=== PATIENT | female | born 1995 | race Hispanic/Latino ===

== ENCOUNTER 2017-10-05 10:18 | Emergency (ER) | payer OTHER ==
[2017-10-05 10:31] VITALS: RESP 18
--- NOTE | 2017-10-05 10:44 | ED PDOC ---
Arrival/HPI - General Chief Complaint: Psychiatric Evaluation Time Seen by Provider: 10/05/17 10:43 Historian: Patient - History of Present Illness Narrative History of Present Illness (Text): 10/05/17 10:44 This 22 yo female is brought by S for PES evaluation. Patient stated she has been feeling depressed, with "intrusive thoughts", feeling "some one" has been trying to locate her with the use of IP address from her computer. Patient is here for evaluation. Patient denies sob, cp, fever, abdominal pain, hallucination, suicidal ideation, homicidal ideation, illegal drug use, or abnormal gait. Time/Duration: Other (see hpi) Context: Home Past Medical History - Provider Review Nursing Documentation Reviewed: Yes - Infectious Disease Hx of Infectious Diseases: None - Cardiac Hx Cardiac Disorders: No - Pulmonary Hx Respiratory Disorders: No - Neurological Hx Neurological Disorder: No - HEENT Hx HEENT Disorder: No - Renal Hx Renal Disorder: No - Endocrine/Metabolic Hx Endocrine Disorders: No - Hematological/Oncological Hx Blood Disorders: No - Integumentary Hx Dermatological Disorder: No - Musculoskeletal/Rheumatological Hx Musculoskeletal Disorders: No - Gastrointestinal Hx Gastrointestinal Disorders: No - Genitourinary/Gynecological Hx Genitourinary Disorders: No - Psychiatric Hx Psychophysiologic Disorder: Yes Hx Anxiety: Yes Hx Depression: Yes (Major Depression) Hx Substance Use: No Other/Comment: Intrusive Thoughts Family/Social History - Physician Review Nursing Documentation Reviewed: Yes Family/Social History: Other (noncontributory) Smoking Status: Never Smoked Hx Alcohol Use: No Hx Substance Use: No Allergies/Home Meds Allergies/Adverse Reactions: Allergies No Known Allergies Allergy (Verified 10/05/17 10:35) Home Medications: Home Meds Medication Instructions Recorded Confirmed No Known Home Med 10/05/17 10/05/17 Review of Systems - Review of Systems Constitutional: Normal. absent: Fatigue, Weight Change, Fevers, Night Sweats Eyes: Normal ENT: Normal Respiratory: Normal Cardiovascular: Normal Gastrointestinal: Normal Genitourinary Female: Normal Musculoskeletal: Normal Skin: Normal Neurological: Normal Endocrine: Normal Hemo/Lymphatic: Normal Psychiatric: Depression, Other (see hpi). absent: Suicidal Ideation Physical Exam Vital Signs Temp Pulse Resp BP Pulse Ox 10/05/17 12:57 98.3 F 89 18 131/72 98 10/05/17 12:40 98.3 F 89 18 131/72 98 10/05/17 10:28 98.4 F 100 H 18 133/90 99 Temperature: Afebrile Blood Pressure: Normal Pulse: Regular Respiratory Rate: Normal Appearance: Positive for: Well-Appearing, Non-Toxic, Comfortable Pain Distress: None Mental Status: Positive for: Alert and Oriented X 3 - Systems Exam Head: Present: Atraumatic, Normocephalic Pupils: Present: PERRL Extroacular Muscles: Present: EOMI Conjunctiva: Present: Normal Mouth: Present: Moist Mucous Membranes Neck: Present: Normal Range of Motion Respiratory/Chest: Present: Clear to Auscultation, Good Air Exchange. No: Respiratory Distress, Accessory Muscle Use Cardiovascular: Present: Regular Rate and Rhythm, Normal S1, S2. No: Murmurs Abdomen: No: Tenderness, Distention, Peritoneal Signs Back: Present: Normal Inspection Upper Extremity: Present: Normal Inspection. No: Cyanosis, Edema Lower Extremity: Present: Normal Inspection. No: Edema Neurological: Present: GCS=15, CN II-XII Intact, Speech Normal Skin: Present: Warm, Dry, Normal Color. No: Rashes Psychiatric: Present: Alert, Oriented x 3, Normal Insight, Normal Concentration , Normal Mood. No: Suicidal Ideation, Homicidal Ideation, Delusional, Hallucinations, Intoxicated Medical Decision Making ED Course and Treatment: 10/05/17 12:31 Patient was evaluated by Luba from [facility]. She recommended admission for depression, however, she stated there is not bed today. She said there will be a bed tomorrow. Patient is agreeable to return tomorrow for admission. Patient denies HI, SI Re-evaluation Time: 12:34 Reassessment Condition: Re-examined, Improved - Lab Interpretations Lab Results: 10/05/17 10:35 10/05/17 10:35 Lab Results 10/05/17 10:35: Alcohol, Quantitative < 10 10/05/17 10:35: Salicylates < 1 L, Acetaminophen < 10.0 L 10/05/17 10:35: Urine Opiates Screen Negative, Urine Methadone Screen Negative, Ur Barbiturates Screen Negative, Ur Phencyclidine Scrn Negative, Ur Amphetamines Screen Negative, U Benzodiazepines Scrn Negative, U Oth Cocaine Metabols Negative, U Cannabinoids Screen Negative 10/05/17 10:35: Sodium 143, Potassium 4.0, Chloride 105, Carbon Dioxide 22, Anion Gap 20, BUN 28 H, Creatinine 0.7, Est GFR ( Amer) > 60, Est GFR ( Non-Af Amer) > 60, Random Glucose 132 H, Calcium 9.7, Magnesium 1.8, Total Bilirubin 0.9, AST 25, ALT 24, Alkaline Phosphatase 71, Total Protein 8.3, Albumin 5.0 H, Globulin 3.4, Albumin/Globulin Ratio 1.5 10/05/17 10:35: Urine Color Yellow, Urine Appearance Clear, Urine pH 5.5, Ur Specific [place] >= 1.030, Urine Protein 100 H, Urine Glucose (UA) Negative, Urine Ketones 40 H, Urine Blood Trace-intact H, Urine Nitrate Negative, Urine Bilirubin Small H, Urine Urobilinogen 1.0 H, Ur Leukocyte Esterase Negative, Urine RBC 2 - 5, Urine WBC 1 - 3, Ur Epithelial Cells 6 - 8, Urine Bacteria Many , Coarse Granular Casts Trace H, Urine Other Uyeast, Urine HCG, Qual Negative 10/05/17 10:35: WBC 6.2, RBC 4.46, Hgb 13.5, Hct 38.7, MCV 86.8, MCH 30.3, MCHC 34.9, RDW 12.7, Plt Count 310, MPV 9.9, Gran % 64.9, Lymph % (Auto) 26.6, [place] % (Auto) 7.3 H, Eos % (Auto) 0.6 L, Baso % (Auto) 0.6, Gran # 3.99, Lymph # ( Auto) 1.6, [place] # (Auto) 0.5, Eos # (Auto) 0.0, Baso # (Auto) 0.04 - RAD Interpretation Radiology Orders: 10/05/17 10:43 CHEST PORTABLE [RAD] Stat Disposition/Present on Arrival - Present on Arrival Any Indicators Present on Arrival: No History of DVT/PE: No History of Uncontrolled Diabetes: No Urinary Catheter: No History of Decub. Ulcer: No History Surgical Site Infection Following: None - Disposition Have Diagnosis and Disposition been Completed?: Yes Diagnosis: Depression Disposition: HOME/ ROUTINE Disposition Time: 12:35 Condition: GOOD Discharge Instructions (ExitCare): Depression, Adult (DC) Additional Instructions: Call private doctor for follow up visit in 1-2 days. Take medication as instructed. Return to emergency if symptoms. Referrals: [facility] [Outside] - Follow up with primary [facility] [Outside] - Follow up with primary Forms: [employer] ([place])
[2017-10-05 11:04] LABS: BASO # 0.04 K/mm3 (0.0-2.0); BASO % 0.6 % (0.0-3.0); EOS % 0.6 % (1.5-5.0); GRAN # 3.99 (1.4-6.5); GRAN % 64.9 % (50.0-68.0); HEMOGLOBIN 13.5 g/dL (12.0-16.0); LYMPH # 1.6 (1.2-3.4); LYMPH % 26.6 % (22.0-35.0); MEAN CELL VOLUME 86.8 fl (80.0-105.0); MEAN CORPUSCULAR HEMOGLOBIN 30.3 pg (25.0-35.0); MEAN CORPUSCULAR HGB CONC 34.9 g/dl (31.0-37.0); MEAN PLATELET VOLUME 9.9 fl (7.0-11.0); MONO # 0.5 (0.1-0.6); MONO % 7.3 % (1.0-6.0); RBC 4.46 10^6/uL (3.5-6.1); RED CELL DISTRIBUTION WIDTH 12.7 % (11.5-14.5); WHITE BLOOD COUNT 6.2 10^3/ul (4.5-11.0)
[2017-10-05 11:05] LABS: PH,URINE 5.5 (4.7-8.0); URINE BILIRUBIN SMALL (NEGATIVE); URINE BLOOD TRACE-INTACT (NEGATIVE); URINE GLUCOSE (UA) NEGATIVE (NEGATIVE); URINE LEUKOCYTE ESTERASE NEGATIVE Leu/uL (NEGATIVE); URINE PROTEIN 100 mg/dL (<30 mg/dL)
[2017-10-05 11:07] LABS: URINE APPEARANCE CLEAR (CLEAR); URINE COLOR YELLOW (YELLOW)
[2017-10-05 11:08] LABS: HCG,QUALITATIVE URINE NEGATIVE (NEGATIVE)
[2017-10-05 11:12] LABS: ALB/GLOB RATIO 1.5 (1.1-1.8); ALT/SGPT 24 U/L (7-56); AST/SGOT 25 U/L (14-36); BLOOD UREA NITROGEN 28 mg/dL (7-21); CALCIUM 9.7 mg/dL (8.4-10.5); GFR AFRICAN-AMERICAN > 60; GFR NON-AFRICAN AMERICAN > 60
[2017-10-05 11:13] LABS: ACETAMINOPHEN < 10.0 ug/ml (10.0-20.0); SALICYLATE < 1 mg/dL (2.0-20.0)
[2017-10-05 11:21] LABS: URINE BACTERIA MANY (NEG)
[2017-10-05 11:22] LABS: URINE COARSE GRANULAR CAST TRACE /hpf (0-2)
[2017-10-05 11:27] LABS: BARBITURATES, UR NEGATIVE (NEGATIVE); BENZODIAZEPINES, UR NEGATIVE (NEGATIVE); OPIATES, UR NEGATIVE (NEGATIVE); PHENCYCLIDINE, UR NEGATIVE (NEGATIVE)
--- NOTE | 2017-10-05 12:11 | CARD ---
APPROVED REPORT EKG Measurement Heart [id number] <Conclusion> Normal sinus rhythm Normal ECG
--- NOTE | 2017-10-05 12:13 | RAD ---
HISTORY: PES eval COMPARISON: No prior. FINDINGS: LUNGS: No active pulmonary disease. PLEURA: No significant pleural effusion identified, no pneumothorax apparent. CARDIOVASCULAR: Normal. OSSEOUS STRUCTURES: No significant abnormalities. VISUALIZED UPPER ABDOMEN: Normal. OTHER FINDINGS: None. IMPRESSION: No active disease.
[2017-10-05 12:57] VITALS: BP 131/72; PULSE 89; TEMP 98.3; O2SAT 98
== END 2017-10-05 12:40 | disposition home or self-care (01) ==
LOC: ED 10:18
DX: F32.9 Major depressive disorder, single episode, unspecified (principal)

== ENCOUNTER 2017-10-06 11:28 | Inpatient (IN) | payer OTHER ==
--- NOTE | 2017-10-06 11:56 | ED PDOC ---
Arrival/HPI - General Historian: Patient - History of Present Illness Time/Duration: Other (see hpi) Context: Home <Jonh Sandoval - Last Filed: 10/06/17 21:18> <Presley Thomas - Last Filed: 10/07/17 00:46> - General Chief Complaint: Psychiatric Evaluation Time Seen by Provider: 10/06/17 11:50 - History of Present Illness Narrative History of Present Illness (Text): 10/06/17 11:52 This 22 yo female presents to this ED for PES evaluation. Patient stated she has been feeling depressed, and she is feeling that "someone" has been trying to locate her with the use of IP address from her computer. Patient was seen yesterday by PES and she was recommended to return to ED today, since there was not available beds at the Psych floor yesterday. Patient denies sob, cp, fever, abdominal pain, hallucination, suicidal ideation, homicidal ideation, illegal drug use, or abnormal gait. (Jonh Sandoval) Past Medical History - Provider Review Nursing Documentation Reviewed: Yes - Infectious Disease Hx of Infectious Diseases: None - Reproductive Menopause: No - Cardiac Hx Cardiac Disorders: No - Pulmonary Hx Respiratory Disorders: No - Neurological Hx Neurological Disorder: No - HEENT Hx HEENT Disorder: No - Renal Hx Renal Disorder: No - Endocrine/Metabolic Hx Endocrine Disorders: No - Hematological/Oncological Hx Blood Disorders: No - Integumentary Hx Dermatological Disorder: No - Musculoskeletal/Rheumatological Hx Musculoskeletal Disorders: No - Gastrointestinal Hx Gastrointestinal Disorders: No - Genitourinary/Gynecological Hx Genitourinary Disorders: No - Psychiatric Hx Psychophysiologic Disorder: Yes Hx Anxiety: Yes Hx Depression: Yes (Major Depression) Hx Substance Use: No Other/Comment: Intrusive Thoughts - Anesthesia Hx Anesthesia: No <Jonh Sandoval P - Last Filed: 10/06/17 21:18> Family/Social History - Physician Review Nursing Documentation Reviewed: Yes Family/Social History: Other (noncontributory) Smoking Status: Never Smoked Hx Alcohol Use: No Hx Substance Use: No <Jonh Sandoval P - Last Filed: 10/06/17 21:18> Allergies/Home Meds <Jonh Sandoval - Last Filed: 10/06/17 21:18> <Presley Thomas - Last Filed: 10/07/17 00:46> Allergies/Adverse Reactions: Allergies No Known Allergies Allergy (Verified 10/05/17 10:35) Home Medications: Home Meds Medication Instructions Recorded Confirmed No Known Home Med 10/05/17 10/05/17 Review of Systems - Review of Systems Constitutional: Normal. absent: Fatigue, Weight Change, Fevers, Night Sweats Eyes: Normal ENT: Normal Respiratory: Normal Cardiovascular: Normal Gastrointestinal: Normal Genitourinary Female: Normal Musculoskeletal: Normal Skin: Normal Neurological: Normal Endocrine: Normal Hemo/Lymphatic: Normal Psychiatric: Anxiety, Other ((+) paranoia). absent: Suicidal Ideation <Jonh Sandoval P - Last Filed: 10/06/17 21:18> Physical Exam Temperature: Afebrile Blood Pressure: Normal Pulse: Regular Respiratory Rate: Normal Appearance: Positive for: Well-Appearing, Non-Toxic, Comfortable Pain Distress: None Mental Status: Positive for: Alert and Oriented X 3 - Systems Exam Head: Present: Atraumatic, Normocephalic Pupils: Present: PERRL Extroacular Muscles: Present: EOMI Conjunctiva: Present: Normal Mouth: Present: Moist Mucous Membranes Neck: Present: Normal Range of Motion Respiratory/Chest: Present: Clear to Auscultation, Good Air Exchange. No: Respiratory Distress, Accessory Muscle Use Cardiovascular: Present: Regular Rate and Rhythm, Normal S1, S2. No: Murmurs Abdomen: No: Tenderness, Distention, Peritoneal Signs Back: Present: Normal Inspection Upper Extremity: Present: Normal Inspection. No: Cyanosis, Edema Lower Extremity: Present: Normal Inspection. No: Edema Neurological: Present: GCS=15, CN II-XII Intact, Speech Normal, Motor Func Grossly Intact, Normal Sensory Function, Normal Cerebellar Funct, Gait Normal, Memory Normal Skin: Present: Warm, Dry, Normal Color. No: Rashes Psychiatric: Present: Alert, Oriented x 3, Delusional. No: Suicidal Ideation, Homicidal Ideation <Jonh Sandoval P - Last Filed: 10/06/17 21:18> Vital Signs Temp Pulse Resp BP Pulse Ox 10/06/17 21:15 82 18 99 10/06/17 18:17 74 18 134/74 100 10/06/17 12:40 98.2 F 85 18 110/57 L 100 10/06/17 11:46 99.2 F 98 H 18 126/82 100 Medical Decision Making Re-evaluation Time: 11:57 Reassessment Condition: Re-examined, Improving,but remains with symptoms - Lab Interpretations I have reviewed the lab results: Yes Interpretation: No clinic. lab abnormalty <Jonh Sandoval - Last Filed: 10/06/17 21:18> <Presley Thomas - Last Filed: 10/07/17 00:46> ED Course and Treatment: 10/06/17 11:57 Patient is medically clear for psychiatric admission 10/06/17 21:20 Patient signed out to Dr. Thomas at this time. Pending availability of bed for psych admission (Jonh Sandoval) - RAD Interpretation Narrative RAD Interpretations (Text): 10/06/17 11:58 CXR: NAD (10/05/17) (Jonh Sandoval) - PA / NIGHT COURT MAGISTRATE / Resident Statement MD/DO has reviewed & agrees with the documentation as recorded. <Presley Thomas - Last Filed: 10/07/17 00:46> Disposition/Present on Arrival - Present on Arrival Any Indicators Present on Arrival: No History of DVT/PE: No History of Uncontrolled Diabetes: No Urinary Catheter: No History of Decub. Ulcer: No History Surgical Site Infection Following: None - Disposition Have Diagnosis and Disposition been Completed?: Yes <Jonh Sandoval - Last Filed: 10/06/17 21:18> - Present on Arrival Any Indicators Present on Arrival: No - Disposition Have Diagnosis and Disposition been Completed?: Yes Disposition Time: 00:15 <Presley Thomas - Last Filed: 10/07/17 00:46> - Disposition Diagnosis: Paranoid ideation Disposition: HOSPITALIZED Condition: GOOD
[2017-10-07 00:45] VITALS: O2SAT 99
[2017-10-07] MEDS ORDERED: Magnesium Hydroxide Susp 30 ml UD PO PRN (01:42)
[2017-10-07] MEDS ORDERED: Alum-Mag Hydrox-Simethicone Susp (30 mL) PO PRN (01:42)
--- NOTE | 2017-10-07 03:24 | PCM.BM ---
<Tiarra Browning - Last Filed: 10/07/17 03:22> Treatment Plan Problems - Problems identified on initial assessmt Delusions Date Initiated: 10/07/17 Time Initiated: 00:45 Assessment reference: NA Status: Active Priority: 1 Anxiety Date Initiated: 10/07/17 Time Initiated: 00:45 Assessment reference: NA Status: Active Priority: 2 Altered Sleep Patterns Date Initiated: 10/07/17 Time Initiated: 00:45 Assessment reference: NA Status: Active Priority: 3 Treatment assets and liabiliti Patient Assests: cooperative, self-reliant, ADL independent, good support system , negotiates basic needs Patient Liabilities: financial problems - Milieu Protocol Maintain good personal hygiene: daily Encourage regular showers, daily Remind patient to perform daily oral care, daily Assist patient to perform ADL's Conduct patient checks and document Observation sheet: Q15 minutes Maintain personal safety: every shift Educate patient to report safety concerns to staff, every shift Monitor environment for contraband/sharps Medication safety: Monitor for expected outcome, potential side effects: every shift, Assess barriers to learning: every shift, Assess readiness for medication education: every shift Discharge/Continuing Care - Education Needs Education Needs: Family Medication, Family Diagnosis/Disease Process, Family Coping Skills, Patient Medication, Patient Diagnosis/Disease Process, Patient Coping Skills - Discharge Discharge Criteria: Tolerates medication w/o severe side effects, Free of paranoid thoughts, Normal sleep pattern <Chiara Montero - Last Filed: 10/07/17 09:07> - Diagnosis (1) Psychosis Status: Acute Interventions: 10/07/17 09:07 Psychoeducation/psychotherapy Psychopharmacology/adjustment of medications as needed/ monitoring possible side effects Evaluate pt on daily basis Compliance with medications and follow up appointments Long acting medication if pt is noncompliant with pill form Suicide and homicide risk assessment and prevention, coping strategies, safety plan Relapse prevention Reduction of symptoms Improve functional status Possible assertive community treatment Cognitive behavioral therapy Family involvement Possible social skill training as outpatient <Denise Garrison Y - Last Filed: 10/08/17 17:30> Family Contact Family involvement: Family/SO is involved Family contact: Patient agrees to contact Family contact name: Fior Lynne(mother) Family contacted how many times per week?: 2
[2017-10-07 07:03] LABS: GLUCOSE,FASTING 78 mg/dL (65-110); HDL CHOLESTEROL 58 mg/dL (29-60)
[2017-10-07 07:14] LABS: LDL CHOLESTEROL 63 mg/dL (0-129)
--- NOTE | 2017-10-07 14:22 | PCM.PSYCH ---
Initial Psychiatric Evaluation - Initial Psychiatric Evaluation Type of Admission: Voluntary Legal Status: Capacity (patient has capacity to sign consent for tx) Chief Complaint (in patient's own words): "I created an account at [employer], one person liked this page, I think it was stupid idea to create an account, people liked my page, then I was feeling violated, I should keep my privacy, It may be nothing just my name, however I no longer have an access to to it, so it needs to be permanently deleted, I came here because my mom shut the internet down, please log yourself to the account, and ask them to delete my account, so they cant try to make another account, we will know who they are". pt was keep going and going with thought process disorganized, tangential and circumstantial. Patient's Reaction to Hospitalization: pt was admitted to the psych unit for evaluation of paranoia, pt was not able to function, pt was feeling her privacy was violated. History of Present Illness and Precipitating Events: shortly pt is 22yo female, self reported h/o depression, denied h/o psych admissions, denied h/o psych hospitalizations, pt came to the hospital on , but no beds were available, pt did not want to go to other hospital, pt was not suicidal or homicidal but psychotic, pt came back 10/06/17, was admitted for evaluation of paranoia, inability to function, anxiety, depression, obsessive thoughts, pt requires further evaluation and stabilization, observation, med management. pt was seen at the treatment team meeting, presented to be psychotic, peculiar, long/dark/greasy hair covering half of pt's attractive face, white/pail skin, purple lipstick, long black dress, intense eye contact, pt is anxious, depressed , acceptable hygiene, good ADLs. pt said that she started to feel weird in April of this year, pt was telling that somebody is using her account using pseudonym which she created on [employer], pt said that she tried to shut the account down but system did not allow her to do so, pt reported that someone stolen her identity and pt was "violated of my privacy", pt reported that she is "Not overly obsessed", but pt' s mother needed to shut the internet because she was constantly on the internet. pt also reported that "I pinned so many pages and now it is spread all over the internet". pt reported that she was on "emotional roller coaster", pt reported that she had obsessive thoughts, "they are just popping in my head" , pt said she was binge eating, denied purging. pt also was making weird request for this rewriter to log her to the website and ask to delete her account , when was asked what help pt looking for, pt said "all I need it is technical help with the website, but my mom said that I am paranoid", pt gave permission to talk to mother. pt denied hearing voices or seeing things, but pt presented to be psychotic. pt reported to feel depressed, hopeless, but denied thoughts of harming self or others. pt has h/o irritability, mind racing, impulsivity, but no full manic episodes in the past. pt reported that she had difficulties to fall and to stay asleep. pt denied using drugs or smoking cigarettes, denied alcohol consumption. medical h/o: peptic ulcer disease, h/o obesity Family h/o: father has schizophrenia, he is 30 yo now, pt does not know what meds he is on. Lab Results 10/07/17 06:30: TSH 3rd Generation 1.31 10/07/17 06:30: Fasting Glucose 78, Triglycerides 50, Cholesterol 147, LDL Cholesterol Direct 63, HDL Cholesterol 58 Vital Signs Temp Pulse Resp BP Pulse Ox 10/07/17 07:22 98.4 F 85 18 105/68 10/07/17 01:00 97.4 F L 72 106/75 99 10/07/17 00:45 99 10/06/17 21:15 82 18 99 10/06/17 18:17 74 18 134/74 100 10/06/17 12:40 98.2 F 85 18 110/57 L 100 10/06/17 11:46 99.2 F 98 H 18 126/82 100 Current Medications: Active Medications Generic Name Dose Route Start Last Admin Trade Name Freq PRN Reason Stop Dose Admin Acetaminophen 650 mg 10/07/17 01:42 Tylenol 325mg Tab PO Q4 PRN Pain, moderate (4-7) Al Hydrox/Mg Hydrox/Simethicone 30 ml 10/07/17 01:42 Maalox Plus 30 Ml PO DAILY PRN Upset Stomach Aripiprazole 2.5 mg 10/07/17 22:00 Abilify PO AMHS NIKKI Fluoxetine HCl 10 mg 10/07/17 11:45 10/07/17 12:00 Prozac PO 10 mg DAILY NIKKI Administration Lorazepam 0.5 mg 10/07/17 01:45 10/07/17 02:00 Ativan PO 0.5 mg HS NIKKI Administration Protocol Lorazepam 0.25 mg 10/07/17 11:36 Ativan PO TID PRN Anxiety Protocol Magnesium Hydroxide 30 ml 10/07/17 01:42 Milk Of Magnesia PO DAILY PRN Constipation Zaleplon 5 mg 10/07/17 01:42 Sonata PO HS PRN Insomnia pt was educated about risk/benefits and alternatives of meds Past Psychiatric History - Past Psychiatric History Previous Treatment History: None Prior Professional Help: h/o depression Prior Psychiatric Treatment: none At what hospital: none Duration: none Nature of Treatment: none Explanation of prior treatment: none History of Abuse: none History of ETOH/Drug Use: none History of Family Illness: none Pertinent Medical Hx (Current Medical&Sleep Prob, Allergies): Allergies Allergy/AdvReac Type Severity Reaction Status Date / Time No Known Allergies Allergy Verified 10/07/17 01:55 No Known Home Med 10/05/17 Review of Systems - Review of Systems Systems not reviewed;Unavailable: Acuity of Condition - EENT Eyes: As Per HPI Ears: As Per HPI Nose/Mouth/Throat: As Per HPI - Breasts Breasts: As Per HPI - Cardiovascular Cardiovascular: As Per HPI - Respiratory Respiratory: As Per HPI - Gastrointestinal Gastrointestinal: As Per HPI - Genitourinary Genitourinary: As Per HPI - Reproductive: Female Reproductive:Female: As Per HPI - Menstruation Menstruation: As Per HPI - Musculoskeletal Musculoskeletal: As Par HPI - Integumentary Integumentary: As Per HPI - Neurological Neurological: As Per HPI - Psychiatric Psychiatric: As Per HPI - Endocrine Endocrine: As Per HPI - Hematologic/Lymphatic Hematologic: As Per HPI Mental Status Examination - Personal Presentation Personal Presentation: Looks stated age - Affect Affect: Flat - Motor Activity Motor Activity: Psychomotor Retardation - Reliability in Providing Information Reliability in Providing Information: Poor, due to alteration in thoughts - Speech Speech: Disorganized, Tangential - Mood Mood: Depressed, Anxious - Formal Thought Process Formal Thought Process: Delusions, Paranoia, Loosening of associations, Circumstantial - Hallucinations/Delusions Delusions: Persecution - Obsessions/Compulsions Obsessions: Yes Compulsions: Yes Description of Obsession/Compulsion: obsessed with being cyberbullied - Cognitive Functions Orientation: Person, Place Sensorium: Alert Attention/Concentration: Easily distracted Estimate of Intelligence: Average Judgement: Intact, as evidence by: Insight regarding need for hospitalization - Risk Risk: Diminished functioning - Strength & Assets Inventory Strength & Assets Inventory: Family support, Cooperative - Limitations Limitations: Other (pt is psychotic, strong family h/o schizophrenia) DSM 5 DX - DSM 5 DSM 5 Diagnosis: r/o first break of schizophrenia r/o OCD severe - Recommended/Plan of Treatment Treatment Recommendations and Plan of Treatment: Milieu/structure/supportive therapy Medical consult appreciated, see medical team note for more detailed info SW consultation for discharge plan and social issues Med management abilify 2.5mg po amhh for psychosis prozac 10mg po daily for depression and anxiety and possible OCD ativan prn for anxiety remeron for insomnia Family involvement Follow up on labs Will monitor closely Pt was educated about risk/benefits and alternatives of medications, coping strategies (safety plan, suicide prevention), relapse prevention, importance of follow up with psychiatrist and therapist, stay away from drugs/alcohol/smoking Projected ELOS: 7days Prognosis: guarded Discharge Plan and Discharge Criteria: Pt will be not depressed or manic, will be more hopeful, will be not psychotic or anxious, will be not having thoughts of harming self or others, will be tolerating medications well, will not have major side effects, will be able to function, will not pose threat to self or others. - Smoking Cessation Smoking Cessation Initiated: No Reason for not providing: denied smoking
--- NOTE | 2017-10-08 14:44 | PCM.PYCHPN ---
Psychiatric Progress Note - Psychiatric Progress Note Patient seen today, length of contact: 30min Patient Chief Complaint: "I don't want my mom to be involved, you can talk to her over the phone, but I do want her to come, I'm very angry at her, it does not mean that I will hurt her or something, but I don't want to talk to her" Problems Identified/Issues Discussed: Lab Results 10/07/17 06:30: RPR Nonreactive 10/07/17 06:30: TSH 3rd Generation 1.31 10/07/17 06:30: Fasting Glucose 78, Triglycerides 50, Cholesterol 147, LDL Cholesterol Direct 63, HDL Cholesterol 58 Vital Signs Temp Pulse Resp BP Pulse Ox 10/08/17 07:25 98.0 F 86 19 112/67 10/07/17 16:00 78 115/70 10/07/17 07:22 98.4 F 85 18 105/68 10/07/17 01:00 97.4 F L 72 106/75 99 10/07/17 00:45 99 10/06/17 21:15 82 18 99 10/06/17 18:17 74 18 134/74 100 10/06/17 12:40 98.2 F 85 18 110/57 L 100 10/06/17 11:46 99.2 F 98 H 18 126/82 100 Suicide/ homicide prevention, past psychiatric h/o, current psychiatric symptoms , medical problems, risk/benefits and alternatives of medications, medications compliance, coping strategies, substance abuse h/o, relapse prevention, importance of follow up with psychiatrist and therapist, discharge plan. Medical Problems: none DSM 5 Symptoms Update: shortly pt is 22yo female, self reported h/o depression, denied h/o psych admissions, denied h/o psych hospitalizations, pt came to the hospital on , but no beds were available, pt did not want to go to other hospital, pt was not suicidal or homicidal but psychotic, pt came back 10/06/17, was admitted for evaluation of paranoia, inability to function, anxiety, depression, obsessive thoughts, pt requires further evaluation and stabilization, observation, med management. pt was seen at the treatment team meeting, presented to be psychotic, peculiar, long/dark/greasy hair covering half of pt's attractive face, white/pail skin, purple lipstick, long black dress, intense eye contact, pt is anxious, depressed , acceptable hygiene, good ADLs. pt is paranoid towards her mother, refused to participate in family meeting which this fiction writer requested, pt presented to be seclusive, guarded, paranoid, pt said that she wants to be discharged, pt was educated about 48hr notice, as well as about [facility] screening process ""I do want to be committed, I will stay here". collaterals from mother by SW, pt was more paranoid 4days prior to this visit, pt has impression that she was cyberbullied, was not able to function. pt denied hearing voices or seeing things, but pt presented to be psychotic. pt reported to feel depressed, hopeless, but denied thoughts of harming self or others. as per staff patient is not participating in unit activities, not socializing with other patients, guarded and psychotic. Impression: Rule out for his break of schizophrenia Schizophrenia form disorder Rule out schizoid personality disorder rule out obsessive-compulsive disorder Medication Change: Yes (abilify and prozac increased) Medical Record Reviewed: Yes Consults ordered or reviewed: pt was seen by medical team in ED, pt does not have major medical issues. Mental Status Examination - Cognitive Function Orientation: Person, Place Memory: Impaired Attention: Poor Concentration: Poor Association: Loose Fund of Knowledge: Poor - Mood Mood: Depressed, Anxious - Affect Affect: Flat - Formal Thought Process Formal Thought Process: Delusions, Paranoia, Loosening of associations, Circumstantial - Suicidal Ideation Suicidal Ideation: No - Homicidal Ideation Homicidal Ideation: No Goal/Treatment Plan - Goal/Treatment Plan Need for Continued Stay: Remain at risks for inpatient hospitalization, Severe depression anxiety, Discharge may exacerbated symptoms, Severe functional impairment Progress Toward Problem(s) and Goals/Treatment Plan: Milieu/structure/supportive therapy Medical consult appreciated, see medical team note for more detailed info DIAZ consultation for discharge plan and social issues Med management abilify 5mg po amhh for psychosis prozac 20mg po daily for depression and anxiety and possible OCD ativan prn for anxiety remeron for insomnia Family involvement Follow up on labs Will monitor closely Pt was educated about risk/benefits and alternatives of medications, coping strategies (safety plan, suicide prevention), relapse prevention, importance of follow up with psychiatrist and therapist, stay away from drugs/alcohol/smoking Estimated Date of D/C: 10/15/17
[2017-10-08 16:47] VITALS: RESP 20
--- NOTE | 2017-10-09 10:35 | PCM.PYCHPN ---
Psychiatric Progress Note - Psychiatric Progress Note Patient seen today, length of contact: 25 min Problems Identified/Issues Discussed: Patient is 22 yo female, self reported h/o depression, denied h/o psych admissions, denied h/o psych hospitalizations who was admitted for evaluation of paranoia, inability to function, anxiety, depression and obsessive thoughts I reviewed recent notes and met with patient at bedside. She is calm, superficially cooperative and oriented x3. Grooming is fair. Patient reports feeling improved and denies any hallucinations or paranoia. Affect is a little guarded and anxious. Patient is tolerating her medications except for some continued nausea which may be due to prozac or abilify. Staff notes indicate that patient has been oddly related and a little aloof. Overall she has been in good control without any major behavioral issues. Diagnostic Results: Rule out first break of schizophrenia Schizophrenia form disorder Rule out schizoid personality disorder rule out obsessive-compulsive disorder Medication Change: No ( ) Medical Record Reviewed: Yes Mental Status Examination - Cognitive Function Orientation: Person, Place Memory: Impaired Attention: Poor Concentration: Poor Association: Loose Fund of Knowledge: Poor - Mood Mood: Depressed, Anxious - Affect Affect: Flat - Formal Thought Process Formal Thought Process: Delusions, Paranoia, Loosening of associations, Circumstantial - Suicidal Ideation Suicidal Ideation: No - Homicidal Ideation Homicidal Ideation: No Goal/Treatment Plan - Goal/Treatment Plan Need for Continued Stay: Remain at risks for inpatient hospitalization, Severe depression anxiety, Discharge may exacerbated symptoms, Severe functional impairment Progress Toward Problem(s) and Goals/Treatment Plan: * c/w current tx and plan * c/w prozac, abilify and remeron * No new weekend labs thus far * Vitals reviewed and noted below: Selected Entries 10/08/17 10/08/17 07:25 16:45 Temperature 98.0 F Pulse Rate 86 75 Respiratory 19 20 Rate Blood Pressure 112/67 108/68 Estimated Date of D/C: 10/15/17
--- NOTE | 2017-10-10 10:09 | PCM.PYCHPN ---
Psychiatric Progress Note - Psychiatric Progress Note Patient seen today, length of contact: 25 min Problems Identified/Issues Discussed: Patient is 22 yo female, self reported h/o depression, denied h/o psych admissions, denied h/o psych hospitalizations who was admitted for evaluation of paranoia, inability to function, anxiety, depression and obsessive thoughts I reviewed recent notes and met with patient at bedside. She is calm, superficially cooperative and oriented x3. Grooming is fair. Patient reports feeling improved and denies any hallucinations or paranoia. Affect is a little guarded and anxious. Patient is tolerating her medications. Complained of nausea yesterday and received zofran. She denies any side effects today. Staff notes indicate that patient has been visible on the unit but demonstrates minimal interaction with other patients. She appears a little oddly related and aloof. Overall she has been in good control without any major behavioral issues. Diagnostic Results: Rule out first break of schizophrenia Schizophrenia form disorder Rule out schizoid personality disorder rule out obsessive-compulsive disorder Medication Change: No ( ) Medical Record Reviewed: Yes Mental Status Examination - Cognitive Function Orientation: Person, Place Memory: Impaired Attention: Poor Concentration: Poor Association: Loose Fund of Knowledge: Poor - Mood Mood: Depressed, Anxious - Affect Affect: Flat - Formal Thought Process Formal Thought Process: Delusions, Paranoia, Loosening of associations, Circumstantial - Suicidal Ideation Suicidal Ideation: No - Homicidal Ideation Homicidal Ideation: No Goal/Treatment Plan - Goal/Treatment Plan Need for Continued Stay: Remain at risks for inpatient hospitalization, Severe depression anxiety, Discharge may exacerbated symptoms, Severe functional impairment Progress Toward Problem(s) and Goals/Treatment Plan: * c/w current tx and plan * c/w prozac, abilify and remeron * No new weekend labs * Vitals reviewed and noted below: Selected Entries 10/09/17 10/09/17 07:28 16:00 Temperature 97.7 F Pulse Rate 82 75 Respiratory 20 Rate Blood Pressure 110/52 L 104/66 Estimated Date of D/C: 10/15/17
--- NOTE | 2017-10-11 14:32 | PCM.PYCHPN ---
Psychiatric Progress Note - Psychiatric Progress Note Patient seen today, length of contact: 30min Patient Chief Complaint: "I am okay for the family meeting, but I want my mother and my grandmother to be involved only, I don't want my uncle to come" Problems Identified/Issues Discussed: Lab Results 10/07/17 06:30: RPR Nonreactive 10/07/17 06:30: TSH 3rd Generation 1.31 10/07/17 06:30: Fasting Glucose 78, Triglycerides 50, Cholesterol 147, LDL Cholesterol Direct 63, HDL Cholesterol 58 Vital Signs Temp Pulse Resp BP Pulse Ox 10/08/17 07:25 98.0 F 86 19 112/67 10/07/17 16:00 78 115/70 10/07/17 07:22 98.4 F 85 18 105/68 10/07/17 01:00 97.4 F L 72 106/75 99 10/07/17 00:45 99 10/06/17 21:15 82 18 99 10/06/17 18:17 74 18 134/74 100 10/06/17 12:40 98.2 F 85 18 110/57 L 100 10/06/17 11:46 99.2 F 98 H 18 126/82 100 Suicide/ homicide prevention, past psychiatric h/o, current psychiatric symptoms , medical problems, risk/benefits and alternatives of medications, medications compliance, coping strategies, substance abuse h/o, relapse prevention, importance of follow up with psychiatrist and therapist, discharge plan. Medical Problems: none Diagnostic Results: Lab Results 10/07/17 06:30: RPR Nonreactive 10/07/17 06:30: TSH 3rd Generation 1.31 10/07/17 06:30: Fasting Glucose 78, Triglycerides 50, Cholesterol 147, LDL Cholesterol Direct 63, HDL Cholesterol 58 Vital Signs Temp Pulse Resp BP Pulse Ox 10/10/17 15:00 82 100/57 L 10/10/17 07:17 97.6 F 63 20 98/59 L 10/09/17 16:00 75 104/66 10/09/17 07:28 97.7 F 82 20 110/52 L 10/08/17 16:45 75 20 108/68 10/08/17 07:25 98.0 F 86 19 112/67 10/07/17 16:00 78 115/70 06/21/18 07:22 98.4 F 85 18 105/68 10/07/17 01:00 97.4 F L 72 106/75 99 10/07/17 00:45 99 10/06/17 21:15 82 18 99 10/06/17 18:17 74 18 134/74 100 10/06/17 12:40 98.2 F 85 18 110/57 L 100 10/06/17 11:46 99.2 F 98 H 18 126/82 100 DSM 5 Symptoms Update: shortly pt is 22yo female, self reported h/o depression, denied h/o psych admissions, denied h/o psych hospitalizations, pt came to the hospital on , but no beds were available, pt did not want to go to other hospital, pt was not suicidal or homicidal but psychotic, pt came back 10/06/17, was admitted for evaluation of paranoia, inability to function, anxiety, depression, obsessive thoughts, pt requires further evaluation and stabilization, observation, med management. pt was seen at the treatment team meeting room today, presented to be less anxious more relaxed, at the same time oddly related and aloof. presented to be less psychotic, but still peculiar, long/dark/greasy hair covering half of pt's attractive face, white/pail skin, purple lipstick, long black dress. pt is still irritable about her mother shut the internet, at the same time pt said "it is not the end of the world". pt denied hearing voices or seeing things, but guarded. pt denied thoughts of harming self or others, tolerated meds well, no side effects, but as per staff pt felt nauseated yesterday, received zofran. AIMS 0, no EPS. Impression: Rule out for his break of schizophrenia Schizophrenia form disorder Rule out schizoid personality disorder rule out obsessive-compulsive disorder Medication Change: No ( ) Medical Record Reviewed: Yes Consults ordered or reviewed: pt was seen by medical team in ED, pt does not have major medical issues. Mental Status Examination - Cognitive Function Orientation: Person, Place Memory: Impaired Attention: Poor (some improvement) Concentration: Poor (some improvement) Association: Loose (some improvement) Fund of Knowledge: Poor - Mood Mood: Depressed ("I am not depressed"), Anxious - Affect Affect: Constricted (but reactive, mood congruent) - Formal Thought Process Formal Thought Process: Delusions (improving ), Paranoia (improving), Loosening of associations - Suicidal Ideation Suicidal Ideation: No - Homicidal Ideation Homicidal Ideation: No Goal/Treatment Plan - Goal/Treatment Plan Need for Continued Stay: Remain at risks for inpatient hospitalization, Severe depression anxiety, Discharge may exacerbated symptoms, Severe functional impairment Progress Toward Problem(s) and Goals/Treatment Plan: Milieu/structure/supportive therapy Medical consult appreciated, see medical team note for more detailed info SW consultation for discharge plan and social issues Med management abilify 5mg po amhh for psychosis prozac 20mg po daily for depression and anxiety and possible OCD ativan prn for anxiety remeron for insomnia Family involvement Follow up on labs Will monitor closely Pt was educated about risk/benefits and alternatives of medications, coping strategies (safety plan, suicide prevention), relapse prevention, importance of follow up with psychiatrist and therapist, stay away from drugs/alcohol/smoking family meeting requested for tomorrow Estimated Date of D/C: 10/12/17
[2017-10-12 07:25] VITALS: BP 102/64; PULSE 66; TEMP 98.3
--- NOTE | 2017-10-12 16:16 | PCM.PYCHDC ---
Mental Status Examination - Mental Status Examination Orientation: Person, Place, Situation, Time Memory: Intact Mood: Neutral Affect: Constricted (but reactive and mood-congruent) Speech: Appropriate (appropriate) Attention: WNL (much improved) Concentration: WNL (much improved) Association: Loose (but much improved) Fund of Knowledge: WNL Formal Thought Process: No Impairment Description of patient's judgement and insight: Pt has improved insight into mental and medical illness, pt was compliant with medications and unit rules and regulations, pt was going to groups, was calm, cooperative, socially appropriate, no behavioral incidents, no agitation, no aggression. Psychotic Thoughts and Behaviors: Pt denied v/a/t hallucinations, denied paranoid ideations, pt does not appear to be psychotic, and thought process is goal directed. Suicidal Ideation: No Current Homicidal Ideation?: No Plan: pt adamantly denied thoughts of harming self or others denied intent or plan. Discharge Summary - Discharge Note Reason for Hospitalization: pt was admitted to the psych unit for evaluation of paranoia, pt was not able to function, pt was feeling her privacy was violated. Psychiatric History (includes Medical, Family, Personal Hx): none Laboratory Data: Lab Results 10/07/17 06:30: RPR Nonreactive 10/07/17 06:30: TSH 3rd Generation 1.31 10/07/17 06:30: Fasting Glucose 78, Triglycerides 50, Cholesterol 147, LDL Cholesterol Direct 63, HDL Cholesterol 58 Vital Signs Temp Pulse Resp BP Pulse Ox 10/12/17 07:24 98.3 F 66 20 102/64 10/11/17 15:00 67 95/64 L 10/10/17 15:00 82 100/57 L 10/10/17 07:17 97.6 F 63 20 98/59 L 10/09/17 16:00 75 104/66 10/09/17 07:28 97.7 F 82 20 110/52 L 10/08/17 16:45 75 20 108/68 10/08/17 07:25 98.0 F 86 19 112/67 10/07/17 16:00 78 115/70 10/07/17 07:22 98.4 F 85 18 105/68 10/07/17 01:00 97.4 F L 72 106/75 99 10/07/17 00:45 99 10/06/17 21:15 82 18 99 10/06/17 18:17 74 18 134/74 100 10/06/17 12:40 98.2 F 85 18 110/57 L 100 10/06/17 11:46 99.2 F 98 H 18 126/82 100 Consultations:: List each consultation separately and include: 1. Reason for request. 2. Findings. 3. Follow-up Consultations: pt was seen by medical team in ED, pt does not have major medical issues. Summary of Hospital Course include:: 1. Description of specific treatment plan utilized for patients during their course of treatmen. 2. Summarize the time- course for resolution of acute symptoms and/or regressed behaviors. 3. Describe issues identified and worked on during hospitalization. 4. Describe medication utilized. 5. Describe medical problems identified and treated. 6. Reassessment of suicide risk Summary of Hospital Course: shortly pt is 22yo female, self reported h/o depression, denied h/o psych admissions, denied h/o psych hospitalizations, pt came to the hospital on , but no beds were available, pt did not want to go to other hospital, pt was not suicidal or homicidal but psychotic, pt came back 10/06/17, was admitted for evaluation of paranoia, inability to function, anxiety, depression, obsessive thoughts, pt required further evaluation and stabilization, observation, med management. initially pt was seen at the treatment team meeting, presented to be psychotic, peculiar, long/dark/greasy hair covering half of pt's attractive face, white/ pail skin, purple lipstick, long black dress, intense eye contact, pt is anxious , depressed, acceptable hygiene, good ADLs. pt said that she started to feel weird in April of this year, pt was telling that somebody is using her account using pseudonym which she created on [employer], pt said that she tried to shut the account down but system did not allow her to do so, pt reported that someone stolen her identity and pt was "violated of my privacy", pt reported that she is "Not overly obsessed", but pt' s mother needed to shut the internet because she was constantly on the internet. pt also reported that "I pinned so many pages and now it is spread all over the internet". pt reported that she was on "emotional roller coaster", pt reported that she had obsessive thoughts, "they are just popping in my head" , pt said she was binge eating, denied purging. pt also was making weird request for this television script writer to log her to the website and ask to delete her account , when was asked what help pt looking for, pt said "all I need it is technical help with the website, but my mom said that I am paranoid", pt gave permission to talk to mother. pt denied hearing voices or seeing things, but pt presented to be psychotic. pt reported to feel depressed, hopeless, but denied thoughts of harming self or others. pt has h/o irritability, mind racing, impulsivity, but no full manic episodes in the past. pt reported that she had difficulties to fall and to stay asleep. pt denied using drugs or smoking cigarettes, denied alcohol consumption. medical h/o: peptic ulcer disease, h/o obesity Family h/o: father has schizophrenia, he is 30 yo now, pt does not know what meds he is on. Lab Results 10/07/17 06:30: TSH 3rd Generation 1.31 10/07/17 06:30: Fasting Glucose 78, Triglycerides 50, Cholesterol 147, LDL Cholesterol Direct 63, HDL Cholesterol 58 Vital Signs Temp Pulse Resp BP Pulse Ox 10/07/17 07:22 98.4 F 85 18 105/68 10/07/17 01:00 97.4 F L 72 106/75 99 10/07/17 00:45 99 10/06/17 21:15 82 18 99 10/06/17 18:17 74 18 134/74 100 10/06/17 12:40 98.2 F 85 18 110/57 L 100 10/06/17 11:46 99.2 F 98 H 18 126/82 100 over the course of this hospitalization patient was stabilized on the following medications: abilify 5mg po amhh for psychosis prozac 20mg po daily for depression and anxiety and possible OCD ativan prn for anxiety patient tolerated medications well, no side effects observed or reported, patient complain of nausea, which was subsided with Zofran. Over the course of this hospitalization pt was attending groups, pt also had medication management, had therapeutic milieu. Overall pt improved significantly, pt's affect became brighter, pt was less depressed, has realistic future oriented plans "I want to find a job", pt also appears less psychotic, or anxious, pt was socially appropriate, no behavioral issues, pts insight improved as well and soon pt deemed to be ready for discharge. At the time of the discharge pt denied been depressed, denied thoughts of harming self or others, denied psychotic symptoms, and pt does not appeared to be psychotic, denied been anxious, pt is not in imminent danger to self or others, will be following up at 's office information about follow up appointment, time and address provided to the pt, it is patient responsibility to follow up with outpatient clinic, PMD as well as specialists (see SW note for more detailed information). In case pt will need to obtain results of studies pending at discharge pt was provided with contact information of Psychiatric Inpatient unit [phone] as well as Medical Record Department [phone]. patient is not using drugs, does not smoke pt was provided with prescriptions for all of medications (please see medication reconciliation form) Pt was educated about safety plan in case of worsening of symptoms or in case of suicidal or homicidal ideation call 911 or go to the nearest ER, also was educated to take meds as prescribed and stay away from drugs, pt verbalized understanding. family meeting took place today with the patient mother Fior Diagnosis, treatment plan, discharge plan was discussed in details' patient and patient mother were appreciated, patient mother reported that patient "looks much better", patient mother was willing to accept patient back home, was feeling comfortable with d/c plan for the pt. Discharge took more than 45 minutes. - Diagnosis (1) Schizophreniform disorder Status: Acute Priority: High - Final Diagnosis (DSM 5) Condition upon Discharge: IMPROVED Disposition: HOME/ ROUTINE Follow-up Treatment Plan: At the time of the discharge pt denied been depressed, denied thoughts of harming self or others, denied psychotic symptoms, and pt does not appeared to be psychotic, denied been anxious, pt is not in imminent danger to self or others, will be following up at 's office information about follow up appointment, time and address provided to the pt, it is patient responsibility to follow up with outpatient clinic, PMD as well as specialists (see SW note for more detailed information). In case pt will need to obtain results of studies pending at discharge pt was provided with contact information of Psychiatric Inpatient unit [phone] as well as Medical Record Department [phone]. patient is not using drugs, does not smoke pt was provided with prescriptions for all of medications (please see medication reconciliation form) Pt was educated about safety plan in case of worsening of symptoms or in case of suicidal or homicidal ideation call 911 or go to the nearest ER, also was educated to take meds as prescribed and stay away from drugs, pt verbalized understanding. Prescriptions/Medication Reconciliation: ARIPiprazole [Abilify] 10 mg PO DAILY #14 tab FLUoxetine [Prozac] 20 mg PO DAILY #14 cap LORazepam [Ativan] 0.5 mg PO BID #30 tab Multivitamin,Therapeutic [Thera] 1 each PO DAILY #14 tablet Ondansetron [Zofran Tab] 4 mg PO Q8H PRN #21 tab PRN Reason: Nausea/Vomiting - Smoking Cessation Smoking Cessation Medication prescribed: No Reason for not providing: denies smoiking - Antipsychotic Medications Pt discharged on 2 or more routine antipsychotic medications: No
== END 2017-10-12 12:26 | disposition home or self-care (01) | DRG 885 ==
LOC: ED 11:28 → ERH 10-07 00:07 → PSYC 10-07 00:45
PROVIDERS: ADMIT Psychiatry & Neurology Psychiatry; ATTEND Psychiatry & Neurology Psychiatry
PROC: GZ3ZZZZ Medication Management (ICD-10-PCS; principal; 2017-10-07)
DX: F20.81 Schizophreniform disorder (principal); F41.9 Anxiety disorder, unspecified; G47.00 Insomnia, unspecified; Z81.8 Family history of other mental and behavioral disorders